=== PATIENT | male | born 1940 | race Caucasian/White ===

== ENCOUNTER 2017-08-03 06:55 | Emergency (ER) | payer OTHER ==
[~2017-08-03 06:55] MED LIST: ALLO-119 PO; ASP81 PO; ATR80PT PO; BENA5TAB32 PO; CEFU500T10 PO; CHOL10005 PO; DIG25 PO; LOR5 PO; METO25TA93 PO; OMEP-125 PO; OXYC-823 PO; PRED-1 PO; SIMV5TAB56 PO; TRAM-420 PO; WAR1 PO; WARF3TAB36 PO; WARF5TAB23 PO; antiacid
[2017-08-03] MEDS ORDERED: NS(*) 0.9% 1000 ML BAG 1,000 ML IV ONE (06:58)
--- NOTE | 2017-08-03 06:58 | ER Report ---
History and Physical Time Seen By MD: 07:15 HPI/ROS CHIEF COMPLAINT: abdominal pain/ distension, nausea without vomiting HISTORY OF PRESENT ILLNESS: Patient is a 76-year-old male here with a history of colon masses and colon cancer status post resection the last of which was in July. Patient also reports being on Coumadin for embolisms. Last stricture reduction was approximately 8 weeks ago. He is followed at the [facility] for prior GI procedures with " Dr. Gaytan". He reports that since yesterday evening he has had worsening abdominal pain, distention, nausea. He denies vomiting, fevers , chills, chest pain, shortness of breath. He does report dark stools. His last meal was yesterday evening. He denies passing flatus at this time since last night. REVIEW OF SYSTEMS: Constitutional: No fever, no chills. Eyes: No discharge. ENT: No sore throat. Cardiovascular: No chest pain, no palpitations. Respiratory: No cough, no shortness of breath. Gastrointestinal: + abdominal pain and distension, not passing flatus, nausea but no vomiting, + dark stools Genitourinary: No hematuria. Musculoskeletal: No back pain. Skin: No rashes. Neurological: No headache. Allergies: Coded Allergies: No Known Drug Allergies (Verified , 08/03/17) Home Meds Reported Medications Warfarin Sodium (WARFARIN SODIUM) 5 Mg Tablet, 5 MG PO QDAY, TAB 01/12/17 Omeprazole (OMEPRAZOLE) 20 Mg Capsule.dr, 2 CAP PO QDAY, CAP 08/05/16 Metoprolol Tartrate (METOPROLOL TARTRATE) 25 Mg Tablet, 1 TAB PO BID, TAB 08/05/16 Atorvastatin (LIPITOR) 80 Mg Tab, 20 MG PO QPM, TAB 03/25/16 Discontinued Reported Medications Cholecalciferol (Vitamin D3) (VITAMIN D3) 1,000 Unit Tablet, 2000 UNIT PO QDAY, TAB 08/05/16 Oxycodone Hcl (OXYCONTIN) 10 Mg Tab.er.12h, 5 MG PO Q1-2H Y for PAIN, TAB 08/05/16 Past Medical/Surgical History Open-heart surgery, atrial fibrillation, pulmonary embolism, colon cancer, appendectomy, partial colectomy, Hx Smoking: Yes Hx Substance Use Disorder: No Hx Alcohol Use: No Constitutional Vital Sign - Last 24 Hours 5/08/03/17 08/03/17 08/03/17 07:00 07:04 07:05 07:10 Temp 97.9 Pulse 84 89 Resp 16 B/P (MAP) 179/107 179/107 (131) Pulse Ox 86 90 O2 Delivery Room Air 08/03/17 08/03/17 08/03/17 08/03/17 07:15 07:20 07:25 07:28 Pulse 91 82 B/P (MAP) 170/89 (116) Pulse Ox 89 86 83 O2 Flow Rate 2.0 08/03/17 08/03/17 08/03/17 08/03/17 07:30 07:35 07:40 07:55 Pulse 71 70 ??? 76 B/P (MAP) 171/106 (127) Pulse Ox 95 96 95 08/03/17 08/03/17 08/03/17 08/03/17 08:00 08:10 08:15 08:20 Pulse 67 60 B/P (MAP) 172/94 (120) 165/98 (120) Pulse Ox 96 96 08/03/17 08/03/17 08/03/17 08/03/17 08:30 08:35 08:45 08:50 Pulse 64 66 B/P (MAP) 165/83 (110) 165/99 (121) Pulse Ox 95 96 08/03/17 08/03/17 08/03/17 08/03/17 09:00 09:15 09:20 09:30 B/P (MAP) 157/93 (114) 168/83 (111) 166/101 (122) Pulse Ox 96 08/03/17 08/03/17 08/03/17 08/03/17 09:35 09:45 10:00 10:15 Pulse 69 B/P (MAP) 186/94 (124) 155/99 (117) 162/99 (120) 08/03/17 08/03/17 08/03/17 08/03/17 10:30 10:45 11:00 11:15 B/P (MAP) 153/95 (114) 159/97 (117) 168/92 (117) 176/92 (120) 08/03/17 08/03/17 08/03/17 08/03/17 11:30 11:45 12:00 12:05 Pulse 67 B/P (MAP) 141/113 (122) 166/103 (124) 168/104 (125) Pulse Ox 99 08/03/17 08/03/17 08/03/17 08/03/17 12:15 12:20 12:30 12:35 Pulse 58 68 B/P (MAP) 168/92 (117) 168/101 (123) Pulse Ox 100 100 08/03/17 08/03/17 08/03/17 08/03/17 12:45 13:00 13:17 13:20 Pulse 70 B/P (MAP) 150/90 (110) 145/76 (99) 182/106 (131) Pulse Ox 98 08/03/17 08/03/17 13:30 14:58 Pulse 75 Resp 16 B/P (MAP) 178/146 (157) 154/92 (112) Pulse Ox 89 O2 Delivery Room Air Intake and Output 08/03/17 08/03/17 08/04/17 15:00 23:00 07:00 Intake Total 1000 ml Output Total 20 ml Balance 980 ml Physical Exam General Appearance: The patient is alert, has no immediate need for airway protection and no signs of toxicity. + mild discomfort due to abdominal pain Eyes: Pupils equal and round no pallor or injection. ENT, Mouth: Mucous membranes are moist. Respiratory: There are no retractions, lungs are clear to auscultation. Cardiovascular: Regular rate and rhythm. Gastrointestinal: Abdomen firm, mildly distended, + TTP in all quadrants Neurological: No focal deficits Skin: Warm and dry, no rashes. Musculoskeletal: Neck is supple non tender. Extremities are nontender, nonswollen and have full range of motion. DIFFERENTIAL DIAGNOSIS: After history and physical exam differential diagnosis was considered for abdominal pain including but not limited to appendicitis, cholecystitis, gastritis and urinary tract infection, small or large bowel blockage, malignancy Medical Decision Making Data Points Result Diagram: 08/03/17 0707 08/03/17 0707 Laboratory Hematology Test 08/03/17 07:07 Red Blood Count 4.85 M/uL (4.00-5.60) Mean Corpuscular Volume 82.0 fL (80.0-96.0) Mean Corpuscular Hemoglobin 27.3 pg (26.0-33.0) Mean Corpuscular Hemoglobin Concent 33.3 g/dL (32.0-36.0) Red Cell Distribution Width 16.6 % (11.5-14.5) Mean Platelet Volume 7.7 fL (7.2-11.1) Neutrophils (%) (Auto) 75.4 % (39.4-72.5) Lymphocytes (%) (Auto) 14.4 % (17.6-49.6) Monocytes (%) (Auto) 8.2 % (4.1-12.4) Eosinophils (%) (Auto) 1.0 % (0.4-6.7) Basophils (%) (Auto) 1.0 % (0.3-1.4) Nucleated RBC Relative Count (auto) 0.0 /100WBC Neutrophils # (Auto) 9.1 K/uL (2.0-7.4) Lymphocytes # (Auto) 1.7 K/uL (1.3-3.6) Monocytes # (Auto) 1.0 K/uL (0.3-1.0) Eosinophils # (Auto) 0.1 K/uL (0.0-0.5) Basophils # (Auto) 0.1 K/uL (0.0-0.1) Nucleated RBC Absolute Count (auto) 0.00 K/uL Prothrombin Time 28.6 seconds (12.0-14.4) Prothromb Time International Ratio 2.59 Activated Partial Thromboplast Time 38 seconds (23-35) Urine Color Yellow Urine Clarity Clear Urine pH 5.0 pH (4.8-9.5) Urine Specific [place] 1.021 Urine Protein Negative mg/dL (NEGATIVE) Urine Glucose (UA) Negative mg/dL (NEGATIVE) Urine Ketones Negative mg/dL (NEGATIVE) Urine Blood Negative (NEGATIVE) Urine Nitrite Negative (NEGATIVE) Urine Bilirubin Negative (NEGATIVE) Urine Urobilinogen Negative mg/dL (0.2-1.9) Urine Leukocyte Esterase Negative (NEGATIVE) Urine RBC None /HPF (0-2/HPF) Urine WBC 2 /HPF (0-5/HPF) Urine Squamous Epithelial Cells None /LPF (</=FEW) Urine Bacteria Negative /HPF (NONE-FEW) Urine Mucus Few /HPF (NONE-FEW) Stool Occult Blood (IFOB) Positive (NEGATIVE) Sodium Level 144 mmol/L (137-145) Potassium Level 3.3 mmol/L (3.5-5.0) Chloride Level 104 mmol/L (98-107) Carbon Dioxide Level 24 mmol/L (22-30) Blood Urea Nitrogen 8 mg/dl (9-21) Creatinine 0.80 mg/dl (0.66-1.25) Glomerular Filtration Rate Calc > 60.0 Random Glucose 139 mg/dl (75-110) Lactate 1.1 mmol/L (0.7-2.1) Calcium Level 9.5 mg/dl (8.4-10.2) Total Bilirubin 0.5 mg/dl (0.2-1.3) Aspartate Amino Transf (AST/SGOT) 28 U/L (0-35) Alanine Aminotransferase (ALT/SGPT) 23 U/L (0-56) Alkaline Phosphatase 85 U/L (0-126) Total Protein 7.8 gm/dl (6.3-8.2) Albumin 4.3 g/dl (3.5-5.0) Lipase 35 U/L (23-300) Chemistry Test 08/03/17 07:07 White Blood Count 12.1 k/uL (4.5-11.0) Red Blood Count 4.85 M/uL (4.00-5.60) Hemoglobin 13.2 g/dL (14.0-18.0) Hematocrit 39.7 % (42.0-52.0) Mean Corpuscular Volume 82.0 fL (80.0-96.0) Mean Corpuscular Hemoglobin 27.3 pg (26.0-33.0) Mean Corpuscular Hemoglobin Concent 33.3 g/dL (32.0-36.0) Red Cell Distribution Width 16.6 % (11.5-14.5) Platelet Count 240 K/uL (150-450) Mean Platelet Volume 7.7 fL (7.2-11.1) Neutrophils (%) (Auto) 75.4 % (39.4-72.5) Lymphocytes (%) (Auto) 14.4 % (17.6-49.6) Monocytes (%) (Auto) 8.2 % (4.1-12.4) Eosinophils (%) (Auto) 1.0 % (0.4-6.7) Basophils (%) (Auto) 1.0 % (0.3-1.4) Nucleated RBC Relative Count (auto) 0.0 /100WBC Neutrophils # (Auto) 9.1 K/uL (2.0-7.4) Lymphocytes # (Auto) 1.7 K/uL (1.3-3.6) Monocytes # (Auto) 1.0 K/uL (0.3-1.0) Eosinophils # (Auto) 0.1 K/uL (0.0-0.5) Basophils # (Auto) 0.1 K/uL (0.0-0.1) Nucleated RBC Absolute Count (auto) 0.00 K/uL Prothrombin Time 28.6 seconds (12.0-14.4) Prothromb Time International Ratio 2.59 Activated Partial Thromboplast Time 38 seconds (23-35) Urine Color Yellow Urine Clarity Clear Urine pH 5.0 pH (4.8-9.5) Urine Specific [place] 1.021 Urine Protein Negative mg/dL (NEGATIVE) Urine Glucose (UA) Negative mg/dL (NEGATIVE) Urine Ketones Negative mg/dL (NEGATIVE) Urine Blood Negative (NEGATIVE) Urine Nitrite Negative (NEGATIVE) Urine Bilirubin Negative (NEGATIVE) Urine Urobilinogen Negative mg/dL (0.2-1.9) Urine Leukocyte Esterase Negative (NEGATIVE) Urine RBC None /HPF (0-2/HPF) Urine WBC 2 /HPF (0-5/HPF) Urine Squamous Epithelial Cells None /LPF (</=FEW) Urine Bacteria Negative /HPF (NONE-FEW) Urine Mucus Few /HPF (NONE-FEW) Stool Occult Blood (IFOB) Positive (NEGATIVE) Glomerular Filtration Rate Calc > 60.0 Lactate 1.1 mmol/L (0.7-2.1) Calcium Level 9.5 mg/dl (8.4-10.2) Total Bilirubin 0.5 mg/dl (0.2-1.3) Aspartate Amino Transf (AST/SGOT) 28 U/L (0-35) Alanine Aminotransferase (ALT/SGPT) 23 U/L (0-56) Alkaline Phosphatase 85 U/L (0-126) Total Protein 7.8 gm/dl (6.3-8.2) Albumin 4.3 g/dl (3.5-5.0) Lipase 35 U/L (23-300) Coagulation Test 08/03/17 07:07 Prothrombin Time 28.6 seconds Prothromb Time International Ratio 2.59 Activated Partial Thromboplast Time 38 seconds Urinalysis Test 08/03/17 07:07 Urine Color Yellow Urine Clarity Clear Urine pH 5.0 pH (4.8-9.5) Urine Specific [place] 1.021 Urine Protein Negative mg/dL (NEGATIVE) Urine Glucose (UA) Negative mg/dL (NEGATIVE) Urine Ketones Negative mg/dL (NEGATIVE) Urine Blood Negative (NEGATIVE) Urine Nitrite Negative (NEGATIVE) Urine Bilirubin Negative (NEGATIVE) Urine Urobilinogen Negative mg/dL (0.2-1.9) Urine Leukocyte Esterase Negative (NEGATIVE) Urine RBC None /HPF (0-2/HPF) Urine WBC 2 /HPF (0-5/HPF) Urine Squamous Epithelial Cells None /LPF (</=FEW) Urine Bacteria Negative /HPF (NONE-FEW) Urine Mucus Few /HPF (NONE-FEW) EKG/Imaging Imaging ABDOMEN/PELVIS WITH CONTRAST HISTORY: Abdominal pain TECHNIQUE: CT abdomen and pelvis with intravenous contrast. One of the following dose optimization techniques was utilized in the performance of this exam: Automated exposure control; adjustment of the mA and/ or kV according to the patient's size; or use of an iterative reconstruction technique. Specific details can be referenced in the facility's radiology CT exam operational policy. CONTRAST: 75 mL Isovue-370. COMPARISON: CT dated August 05, 2016. FINDINGS: Visualized lung bases: Mild bibasilar scarring and/or atelectasis. 2 mm nodule within the right middle lobe, unchanged and benign given chronicity. Partial visualization of biatrial cardiac enlargement. Moderate calcification versus stent within the RCA. Hepatobiliary: Negative. Spleen: Negative. Adrenals: Mild adenomatous thickening of the bilateral adrenal glands. Otherwise negative. Pancreas: Negative. Kidneys/: Right renal cyst measuring up to 2.2 cm. Subcentimeter hypodensity within the left kidney which is too small to characterize however statistically represents a simple cyst. Otherwise negative. GI: Postsurgical changes at the rectosigmoid junction. There is concern for a anastomotic stricture with significant distention of the residual colon measuring up to 7.5 cm in diameter. There is adjacent free fluid and mesenteric edema. There is mild presacral irregular soft tissue (image 355 of series 3) adjacent to the rectosigmoid anastomosis, most compatible with treatment changes. Vessels/spaces/nodes: Moderate atherosclerosis. Mild ascites, predominantly surrounding the residual colon within the right hemiabdomen. Mild mesenteric edema. No visualized lymphadenopathy. 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 Bones/soft tissues: There is a small right ventral abdominal wall hernia, at site of previously identified ostomy, containing loops of nonobstructed small bowel. There is also a small amount of internal ascitic fluid. Moderate bilateral fat-containing inguinal hernias. IMPRESSION: 1. Postsurgical changes from partial colectomy with concern for an anastomotic stricture at the rectosigmoid junction, with significant proximal colonic distention measuring up to 7.5 cm. There is free fluid adjacent to the dilated colon with mild mesenteric edema. Less likely, there could be twisting of the colon at the rectosigmoid junction, not definitively visualized. 2. Small right ventral abdominal wall hernia at site of previously identified ostomy, with nonobstructed loops of small bowel. 3. Additional incidental/chronic findings, as above. Chest with lateral, 2 views. HISTORY: Shortness of breath, dry cough. COMPARISON: Chest CTA 08/05/2016. Oxygen tubing projects on the chest. Sternal wires and metal clips project on the mediastinum. A thin curvilinear density possibly representing an old pacer wire projects on the anterior aspect of the heart, unchanged. The heart is borderline enlarged. The thoracic aorta is minimally elongated. Central pulmonary vessels are mildly prominent, unchanged. Slight elevation of the right hemidiaphragm is unchanged. The lungs are otherwise clear. No pleural fluid. Gas-filled bowel loops are present in the upper abdomen. IMPRESSION: Mild chronic elevation of the right hemidiaphragm, unchanged. Borderline cardiomegaly without tianna congestive heart failure. Technique: KUB SINGLE VIEW ABDOMEN HISTORY: NG placement Comparison studies: CT abdomen pelvis 08/03/2017 FINDINGS: There has been placement of an enteric tube with the tip overlying the gastroesophageal junction and should be advanced. Gaseous filled loops of distended bowel are again identified. Residual contrast is noted within the urinary system. IMPRESSION: 1. Enteric tube tip overlying the gastroesophageal junction. This should be intervally advanced. ED Course/Re-evaluation ED Course Patient is a 76-year-old male here with complaints of diffuse abdominal pain, distention in the setting of prior history of colonic masses status post resection last of which was in July per patient report. Patient denies fevers, chills, chest pain, shortness breath. She was given Zofran, normal saline bolus , Dilaudid for analgesia. Due to concern for acute abdomen, a follow-up x-ray series was completed. Hemoccult was collected and pending. Patient remained hemodynamically stable during course. CT scan showed a stricture at the rectosigmoid junction at the site of prior anastomoses with colonic dilatation of 7.5 cm. Patient reports having an expansion surgery approximately 8 weeks ago. NG tube was placed and [facility] was contacted for further consultation since they have performed the prior surgeries/procedures and have the capability to perform further interventions. I spoke with Dr. Glynn and then I spoke with Dr. Suazo with the [facility] who accepted the patient pending transportation set up. Patient was offered an ambulance transport but opted to drive with family POV due to cost. [facility] was notified regarding plan for transfer via POV. Risks of POV transport was verbalized to the patient. Decision to Disposition Date: August 03, 2017 Decision to Disposition Time: 14:38 Depart Departure Latest Vital Signs Vital Signs Date Time Temp Pulse Resp B/P (MAP) Pulse Ox O2 Delivery O2 Flow Rate FiO2 08/03/17 14:58 75 16 154/92 (112) 89 Room Air 08/03/17 07:28 2.0 08/03/17 07:00 97.9 Impression: Primary Impression: Abdominal pain Additional Impressions: Nausea History of colon cancer Bowel obstruction Condition: Improved Disposition: XFER TO [facility]UTE [facility]ARE [facility] (Transfer to [facility] ( appropriate level of care- possible surgical intervention)) Referrals: MARIOLA LAMB MD (PCP) Problem Qualifiers EVER MADSEN DO August 03, 2017 06:58
[2017-08-03] MEDS ORDERED: ONDANSETRON 4 MG/2 ML VIAL IVP ONE (07:00)
[2017-08-03] MEDS ORDERED: HYDROmorphone* 1 MG/ML 1 MG/ML ML IVP ONE (07:00)
[2017-08-03 07:27] LABS: PLATELET COUNT, AUTOMATED 240 K/uL (150-450)
[2017-08-03] MEDS ORDERED: IOPAMIDOL 76% 75 ML INFUS BTL 75 ML ONE (07:39)
[2017-08-03 07:40] LABS: INR 2.59
--- NOTE | 2017-08-03 08:07 | RADIOLOGY IMAGING REPORT ---
FACILITY: [facility] [place] PATIENT NAME: Kirk Madrid : 1940 MR: [id number] V: [id number] EXAM DATE: ORDERING PHYSICIAN: EVER MADSEN TECHNOLOGIST: Location: [facility] [place] Patient: Kirk Madrid : 1940 Visit/Account:[id number] Date of Sevice: 08/03/2017 Chest with lateral, 2 views. HISTORY: Shortness of breath, dry cough. COMPARISON: Chest CTA 08/05/2016. Oxygen tubing projects on the chest. Sternal wires and metal clips project on the mediastinum. A thin curvilinear density possibly representing an old pacer wire projects on the anterior aspect of the h eart, unchanged. The heart is borderline enlarged. The thoracic aorta is minimally elongated. Central pulmonary vessels are mildly prominent, unchanged. Slight elevation of the right hemidiaphragm is un changed. The lungs are otherwise clear. No pleural fluid. Gas-filled bowel loops are present in the u pper abdomen. IMPRESSION: Mild chronic elevation of the right hemidiaphragm, unchanged. Borderline cardiomegaly without tianna congestive heart failure. Report Dictated By: Portillo Noe MD at 08/03/2017 7:59 AM Report E-Signed By: Portillo Noe MD at 08/03/2017 8:03 AM WSN:[id number]
--- NOTE | 2017-08-03 08:40 | RADIOLOGY IMAGING REPORT ---
FACILITY: [facility] PATIENT NAME: Kirk Madrid : 1940 MR: [id number] V: [id number] EXAM DATE: ORDERING PHYSICIAN: EVER MADSEN TECHNOLOGIST: Location: [facility] [place] Patient: Kirk Madrid : 1940 Visit/Account:[id number] Date of Sevice: 08/03/2017 ABDOMEN/PELVIS WITH CONTRAST HISTORY: Abdominal pain TECHNIQUE: CT abdomen and pelvis with intravenous contrast. One of the following dose optimization techniques was utilized in the performance of this exam: Autom ated exposure control; adjustment of the mA and/or kV according to the patient's size; or use of an i terative reconstruction technique. Specific details can be referenced in the facility's radiology C T exam operational policy. CONTRAST: 75 mL Isovue-370. COMPARISON: CT dated August 05, 2016. FINDINGS: Visualized lung bases: Mild bibasilar scarring and/or atelectasis. 2 mm nodule within the right midd le lobe, unchanged and benign given chronicity. Partial visualization of biatrial cardiac enlargement . Moderate calcification versus stent within the RCA. Hepatobiliary: Negative. Spleen: Negative. Adrenals: Mild adenomatous thickening of the bilateral adrenal glands. Otherwise negative. Pancreas: Negative. Kidneys/: Right renal cyst measuring up to 2.2 cm. Subcentimeter hypodensity within the left kidne y which is too small to characterize however statistically represents a simple cyst. Otherwise negati ve. GI: Postsurgical changes at the rectosigmoid junction. There is concern for a anastomotic stricture with significant distention of the residual colon measuring up to 7.5 cm in diameter. There is adjace nt free fluid and mesenteric edema. There is mild presacral irregular soft tissue (image 355 of series 3) adjacent to the rectosigmoid an astomosis, most compatible with treatment changes. Vessels/spaces/nodes: Moderate atherosclerosis. Mild ascites, predominantly surrounding the residual colon within the right hemiabdomen. Mild mesenteric edema. No visualized lymphadenopathy. 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 Bones/soft tissues: There is a small right ventral abdominal wall hernia, at site of previously iden tified ostomy, containing loops of nonobstructed small bowel. There is also a small amount of interna l ascitic fluid. Moderate bilateral fat-containing inguinal hernias. IMPRESSION: 1. Postsurgical changes from partial colectomy with concern for an anastomotic stricture at the recto sigmoid junction, with significant proximal colonic distention measuring up to 7.5 cm. There is free fluid adjacent to the dilated colon with mild mesenteric edema. Less likely, there could be twisting of the colon at the rectosigmoid junction, not definitively visualized. 2. Small right ventral abdominal wall hernia at site of previously identified ostomy, with nonobstruc nidia loops of small bowel. 3. Additional incidental/chronic findings, as above. Results were discussed with EVER MADSEN at 08/03/2017 8:32 AM. Report Dictated By: Jacob Keith MD at 08/03/2017 8:23 AM Report E-Signed By: Jacob Keith MD at 08/03/2017 8:35 AM WSN:[id number]
[2017-08-03] MEDS ORDERED: LORazepam 2 MG/ML VIAL IVP ONE (09:40)
--- NOTE | 2017-08-03 10:04 | RADIOLOGY IMAGING REPORT ---
FACILITY: [facility] PATIENT NAME: Kirk Madrid : 1940 MR: [id number] V: [id number] EXAM DATE: ORDERING PHYSICIAN: EVER MADSEN TECHNOLOGIST: Location: [facility] [place] Patient: Kirk Madrid : 1940 Visit/Account:[id number] Date of Sevice: 08/03/2017 Technique: KUB SINGLE VIEW ABDOMEN HISTORY: NG placement Comparison studies: CT abdomen pelvis 08/03/2017 FINDINGS: There has been placement of an enteric tube with the tip overlying the gastroesophageal yunior ction and should be advanced. Gaseous filled loops of distended bowel are again identified. Residua l contrast is noted within the urinary system. IMPRESSION: 1. Enteric tube tip overlying the gastroesophageal junction. This should be intervally advanced. Results were called to Emmanuelle URIBE at 08/03/2017 10:01 AM. Report Dictated By: Alvin Benson DO at 08/03/2017 9:45 AM Report E-Signed By: Alvin Benson DO at 08/03/2017 10:01 AM WSN:[id number]
[2017-08-03 14:58] VITALS: BP 154/92
== END 2017-08-03 15:16 | disposition short-term general hospital (02) ==
LOC: ER 07:06
DX: K56.609 Unspecified intestinal obstruction, unspecified as to partial versus complete obstruction (principal); Z85.038 Personal history of other malignant neoplasm of large intestine; K43.9 Ventral hernia without obstruction or gangrene; N28.1 Cyst of kidney, acquired; R18.8 Other ascites
CPT/HCPCS: 71046; 74018; 74177; 81001; 82274; 83605; 83690; 85025; 85610; 85730; 86850; 86900; 86901; 96361; 96374; 96375; 99285; J1170; J2060; J2405; J7030; Q9967; 82040; 82247; 82310; 82374; 82435; 82565; 82947; 84075; 84132; 84155; 84295; 84450; 84460; 84520